=== PATIENT | male | born 1970 | race Caucasian/White ===

== ENCOUNTER 2022-01-15 09:32 | Emergency (ER) | payer OTHER ==
[2022-01-15] MEDS: Diphtheria,Pertussis(Acell),Tetanus Vaccine 0.5 ML SDV IM ONE (10:10)
[2022-01-15] MEDS: Lidocaine 1% 5 ML VIAL INJECT ONE (10:22)
== END 2022-01-15 10:23 | disposition home or self-care (01) ==
LOC: LB.ED 09:32
DX: S60.451A Superficial foreign body of left index finger, initial encounter (principal); Z79.899 Other long term (current) drug therapy; Z23 Encounter for immunization; W45.8XXA Other foreign body or object entering through skin, initial encounter
CPT/HCPCS: 90471; 90715; 99281; 99283-25